=== PATIENT | female | born 1995 | race African-American/Black ===

== ENCOUNTER 2016-04-25 15:00 | Emergency (ER) | payer MEDICAID ==
[2016-04-25] MEDS ORDERED: LIDOCAINE 1% MDV 20 ML ONE (17:40)
[2016-04-25] MEDS ORDERED: AZITHROMYCIN 250 MG TAB ONE (17:40)
[2016-04-25] MEDS ORDERED: CEFTRIAXONE 500 MG VIAL ONE (17:40)
== END 2016-04-25 18:55 | disposition home or self-care (01) ==
LOC: ER 15:00
DX: Z20.2 Contact with and (suspected) exposure to infections with a predominantly sexual mode of transmission (principal)
CPT/HCPCS: 81003; 96372